=== PATIENT | female | born 1980 | race Caucasian/White ===

== ENCOUNTER → 2017-01-22 | Outpatient (CLI) | payer OTHER | LOC: EDSTATUS 09:37 → PT 10:22 ==

== ENCOUNTER 2017-05-03 08:30 | Outpatient (RCR) | payer OTHER | END 2017-05-05 | disposition home or self-care (01) | LOC: PT | DX: Z47.89 Encounter for other orthopedic aftercare (principal) ==

== ENCOUNTER → 2020-10-21 | Outpatient (CLI) | payer BC | LOC: LAB 11:26 | DX: Z20.822 Contact with and (suspected) exposure to COVID-19 (principal) ==